=== PATIENT | female | born 1965 | race Two or more races ===

== ENCOUNTER 2021-04-10 05:38 | Emergency (ER) | payer MEDICAID ==
[~2021-04-10] VITALS: Ht 162.6 cm; Wt 77.1 kg
[2021-04-10 05:43] VITALS: BP 133/75
[2021-04-10] MEDS ORDERED: methylPREDNISolone SOD SUCC 125 MG/2 ML VL IM ONE (08:00)
[2021-04-10] MEDS ORDERED: KETOROLAC TROMETH 60MG/2ML VIAL IM ONE (08:00)
== END 2021-04-10 08:25 | disposition home or self-care (01) ==
LOC: ER 05:38
DX: M06.831 Other specified rheumatoid arthritis, right wrist (principal)
CPT/HCPCS: 73110; 73130; 96372; 99284; J1885; J2930